=== PATIENT | female | born 1935 | race Asian ===

== ENCOUNTER → 2017-09-19 | Outpatient (CLI) | payer MEDICARE, OTHER ==
[2017-09-19 13:53] LABS: ALBUMIN 3.3 g/dL (3.4-5.0); BILIRUBIN,TOTAL 0.3 mg/dL (0.1-1.0); CALCIUM, TOTAL 9.2 mg/dL (8.8-10.5); CREATININE 2.11 mg/dL (0.60-1.30); PHOSPHORUS 3.7 mg/dL (2.5-4.9); POTASSIUM 5.9 mmol/L (3.5-5.1); TOTAL PROTEIN, SERUM 8.7 g/dL (6.4-8.2)
[2017-09-19 14:02] LABS: HEMOGLOBIN A1C 7.1 % (4.5-6.2)
== END | disposition home or self-care (01) ==
LOC: LABPV 08:33
PROVIDERS: ATTEND Internal Medicine Nephrology
DX: I12.9 Hypertensive chronic kidney disease with stage 1 through stage 4 chronic kidney disease, or unspecified chronic kidney disease (principal); E11.22 Type 2 diabetes mellitus with diabetic chronic kidney disease; N18.3 Chronic kidney disease, stage 3 (moderate); E78.5 Hyperlipidemia, unspecified
CPT/HCPCS: 82306; 83036; 83970; 84100

== ENCOUNTER → 2017-10-02 | Outpatient (CLI) | payer MEDICARE, OTHER | END | disposition home or self-care (01) | LOC: LABPV 09:07 | PROVIDERS: ATTEND Internal Medicine Nephrology | DX: E87.5 Hyperkalemia (principal); N18.3 Chronic kidney disease, stage 3 (moderate) | CPT/HCPCS: 84132 ==

== ENCOUNTER → 2017-10-05 | Outpatient (CLI) | payer MEDICARE, OTHER | END | disposition home or self-care (01) | LOC: LABPV 10:50 | PROVIDERS: ATTEND Internal Medicine Nephrology | DX: E87.5 Hyperkalemia (principal) | CPT/HCPCS: 84132 ==

== ENCOUNTER → 2017-12-21 | Outpatient (CLI) | payer MEDICARE, OTHER ==
[2017-12-21 10:16] LABS: HEMATOCRIT 30.7 % (36-46); HEMOGLOBIN 9.9 g/dL (12.0-16.0)
[2017-12-21 10:27] LABS: CALCIUM, TOTAL 9.3 mg/dL (8.8-10.5); CREATININE 2.01 mg/dL (0.60-1.30); POTASSIUM 3.8 mmol/L (3.5-5.1)
[2017-12-21 10:55] LABS: CREATININE,URINE RANDOM 194.2 mg/dL (30.0-125.0)
== END | disposition home or self-care (01) ==
LOC: LABPV 09:07
PROVIDERS: ATTEND Internal Medicine Nephrology
DX: I12.9 Hypertensive chronic kidney disease with stage 1 through stage 4 chronic kidney disease, or unspecified chronic kidney disease (principal); N18.3 Chronic kidney disease, stage 3 (moderate); N39.0 Urinary tract infection, site not specified; E78.5 Hyperlipidemia, unspecified; M19.90 Unspecified osteoarthritis, unspecified site; E87.5 Hyperkalemia
CPT/HCPCS: 82570; 84156; 85014; 85018

== ENCOUNTER → 2018-02-21 | Outpatient (CLI) | payer MEDICARE, OTHER ==
[2018-02-21 12:30] LABS: CALCIUM, TOTAL 9.6 mg/dL (8.8-10.5); CREATININE 2.25 mg/dL (0.60-1.30)
[2018-02-21 12:35] LABS: HEMATOCRIT 31.8 % (36-46); HEMOGLOBIN 10.5 g/dL (12.0-16.0)
== END | disposition home or self-care (01) ==
LOC: LABPV 09:07
PROVIDERS: ATTEND Internal Medicine Nephrology
DX: E11.22 Type 2 diabetes mellitus with diabetic chronic kidney disease (principal); N18.3 Chronic kidney disease, stage 3 (moderate); E78.5 Hyperlipidemia, unspecified
CPT/HCPCS: 85014; 85018

== ENCOUNTER → 2018-04-18 | Outpatient (CLI) | payer MEDICARE, OTHER ==
[2018-04-18 12:43] LABS: HEMATOCRIT 29.8 % (36-46)
[2018-04-18 12:54] LABS: ALBUMIN 2.7 g/dL (3.4-5.0); BILIRUBIN,TOTAL 0.6 mg/dL (0.1-1.0); CALCIUM, TOTAL 8.5 mg/dL (8.8-10.5); CREATININE 2.15 mg/dL (0.60-1.30); POTASSIUM 4.7 mmol/L (3.5-5.1); TOTAL PROTEIN, SERUM 7.9 g/dL (6.4-8.2)
[2018-04-18 13:01] LABS: HEMOGLOBIN A1C 7.8 % (4.5-6.2)
[2018-04-18 15:55] LABS: CREATININE,URINE 46.3 mg/dL (30.0-125.0)
[2018-04-18 15:58] LABS: CREATININE,SERUM FOR CRCL 2.15 mg/dL (0.60-1.30)
== END | disposition home or self-care (01) ==
LOC: LABPV 08:36
PROVIDERS: ATTEND Internal Medicine Nephrology
DX: E11.22 Type 2 diabetes mellitus with diabetic chronic kidney disease (principal); N18.3 Chronic kidney disease, stage 3 (moderate); M19.90 Unspecified osteoarthritis, unspecified site
CPT/HCPCS: 81050; 82575; 83036; 84156; 84300; 85014; 85018

== ENCOUNTER → 2018-07-18 | Outpatient (CLI) | payer MEDICARE, OTHER ==
[2018-07-18 14:13] LABS: HEMATOCRIT 28.9 % (36-46); HEMOGLOBIN 9.5 g/dL (12.0-16.0)
[2018-07-18 14:19] LABS: APPEARANCE,URINE CLOUDY (CLEAR); BILIRUBIN,URINE NEGATIVE (NEGATIVE); GLUCOSE, URINE (UA) 100 mg/dL (NEGATIVE); KETONES,URINE NEGATIVE (NEGATIVE); LEUKOCYTE ESTERASE ,URINE TRACE (NEGATIVE); NITRATE,URINE NEGATIVE (NEGATIVE); OCCULT BLOOD,URINE MODERATE (NEGATIVE); PROTEIN,URINE SEE CONFIRM (NEGATIVE); UROBILINOGEN,URINE 0.2 mg/dL (<=1.0)
[2018-07-18 14:23] LABS: ALBUMIN 2.4 g/dL (3.4-5.0); BILIRUBIN,TOTAL 0.2 mg/dL (0.1-1.0); CALCIUM, TOTAL 9.2 mg/dL (8.8-10.5); CHOL/HDL RATIO 3.7 (3.9-5.7); CREATININE 2.89 mg/dL (0.60-1.30); POTASSIUM 4.3 mmol/L (3.5-5.1); TOTAL PROTEIN, SERUM 8.3 g/dL (6.4-8.2)
[2018-07-18 14:33] LABS: SULFOSALICYLIC ACID,URINE 4+ (Negative)
[2018-07-18 14:35] LABS: BACTERIA,URINE Many /HPF (None Seen); RBC,URINE 0-2 /HPF (0-2); SQUAMOUS EPITHELIAL CELL,UR Few /LPF (None Seen)
== END | disposition home or self-care (01) ==
LOC: LABPV 09:23
PROVIDERS: ATTEND Internal Medicine Nephrology
DX: I12.9 Hypertensive chronic kidney disease with stage 1 through stage 4 chronic kidney disease, or unspecified chronic kidney disease (principal); E11.22 Type 2 diabetes mellitus with diabetic chronic kidney disease; N18.3 Chronic kidney disease, stage 3 (moderate); E55.9 Vitamin D deficiency, unspecified; E78.5 Hyperlipidemia, unspecified; E87.5 Hyperkalemia; Z79.899 Other long term (current) drug therapy
CPT/HCPCS: 82306; 85014; 85018; 87086

== ENCOUNTER → 2018-08-01 | Outpatient (CLI) | payer MEDICARE, OTHER ==
[2018-08-01 13:06] LABS: CALCIUM, TOTAL 9.2 mg/dL (8.8-10.5); CREATININE 2.17 mg/dL (0.60-1.30); POTASSIUM 4.3 mmol/L (3.5-5.1)
== END | disposition home or self-care (01) ==
LOC: LABPV 09:48
PROVIDERS: ATTEND Internal Medicine Nephrology
DX: I12.9 Hypertensive chronic kidney disease with stage 1 through stage 4 chronic kidney disease, or unspecified chronic kidney disease (principal); E11.22 Type 2 diabetes mellitus with diabetic chronic kidney disease; N18.3 Chronic kidney disease, stage 3 (moderate); E78.5 Hyperlipidemia, unspecified

== ENCOUNTER → 2018-09-18 | Outpatient (CLI) | payer MEDICARE, OTHER ==
[2018-09-18 09:57] LABS: HEMATOCRIT 30.8 % (36-46); HEMOGLOBIN 10.3 g/dL (12.0-16.0)
[2018-09-18 10:18] LABS: CALCIUM, TOTAL 9.1 mg/dL (8.8-10.5); CREATININE 2.69 mg/dL (0.60-1.30); POTASSIUM 4.6 mmol/L (3.5-5.1)
[2018-09-18 10:20] LABS: CREATININE,URINE 53.3 mg/dL (30.0-125.0)
[2018-09-18 10:23] LABS: CREATININE,SERUM FOR CRCL 2.69 mg/dL (0.60-1.30)
[2018-09-18 16:46] LABS: % IRON SATURATION 27.5 % (22-44)
== END | disposition home or self-care (01) ==
LOC: LABPV 08:24
PROVIDERS: ATTEND Internal Medicine Nephrology
DX: E78.5 Hyperlipidemia, unspecified (principal); E11.22 Type 2 diabetes mellitus with diabetic chronic kidney disease; N18.3 Chronic kidney disease, stage 3 (moderate); M19.90 Unspecified osteoarthritis, unspecified site
CPT/HCPCS: 81050; 82575; 82607; 82728; 82746; 82784; 83540; 83550; 84155; 84156; 84165; 84166; 84300; 84466; 85014; 85018; 86334; 86335

== ENCOUNTER → 2018-11-28 | Outpatient (CLI) | payer MEDICARE, OTHER ==
[2018-11-28 11:52] LABS: HEMATOCRIT 29.2 % (36-46); HEMOGLOBIN 9.7 g/dL (12.0-16.0)
[2018-11-28 12:04] LABS: CALCIUM, TOTAL 9.1 mg/dL (8.8-10.5); CREATININE 3.19 mg/dL (0.60-1.30); PHOSPHORUS 4.3 mg/dL (2.5-4.9); POTASSIUM 5.3 mmol/L (3.5-5.1)
== END | disposition home or self-care (01) ==
LOC: LABPV 10:02
PROVIDERS: ATTEND Internal Medicine Nephrology
DX: I12.9 Hypertensive chronic kidney disease with stage 1 through stage 4 chronic kidney disease, or unspecified chronic kidney disease (principal); E11.22 Type 2 diabetes mellitus with diabetic chronic kidney disease; N18.4 Chronic kidney disease, stage 4 (severe); N25.81 Secondary hyperparathyroidism of renal origin; D63.1 Anemia in chronic kidney disease
CPT/HCPCS: 83970; 84100; 85014; 85018

== ENCOUNTER → 2018-12-07 | Outpatient (CLI) | payer MEDICARE, OTHER ==
[2018-12-07 10:33] LABS: HEMOGLOBIN A1C 7.9 % (4.5-6.2)
[2018-12-07 10:40] LABS: ALBUMIN 3.1 g/dL (3.4-5.0); BILIRUBIN,TOTAL 0.6 mg/dL (0.1-1.0); CALCIUM, TOTAL 9.3 mg/dL (8.8-10.5); CREATININE 2.76 mg/dL (0.60-1.30); POTASSIUM 4.5 mmol/L (3.5-5.1); TOTAL PROTEIN, SERUM 8.3 g/dL (6.4-8.2)
== END | disposition home or self-care (01) ==
LOC: LABPV 09:23
PROVIDERS: ATTEND Internal Medicine Nephrology
DX: I12.9 Hypertensive chronic kidney disease with stage 1 through stage 4 chronic kidney disease, or unspecified chronic kidney disease (principal); E11.22 Type 2 diabetes mellitus with diabetic chronic kidney disease; N18.4 Chronic kidney disease, stage 4 (severe); Z79.899 Other long term (current) drug therapy
CPT/HCPCS: 83036

== ENCOUNTER → 2019-06-11 | Outpatient (CLI) | payer MEDICARE, OTHER ==
[2019-06-11 10:45] LABS: HEMATOCRIT 25.5 % (36-46)
[2019-06-11 10:57] LABS: ALBUMIN 2.8 g/dL (3.4-5.0); BILIRUBIN,TOTAL 0.3 mg/dL (0.1-1.0); CHOL/HDL RATIO 1.8 (3.9-5.7); CREATININE 2.17 mg/dL (0.60-1.30); PHOSPHORUS 4.4 mg/dL (2.5-4.9); POTASSIUM 5.8 mmol/L (3.5-5.1); TOTAL PROTEIN, SERUM 7.4 g/dL (6.4-8.2)
== END | disposition home or self-care (01) ==
LOC: LABPV 07:38
PROVIDERS: ATTEND Internal Medicine Nephrology
DX: I12.9 Hypertensive chronic kidney disease with stage 1 through stage 4 chronic kidney disease, or unspecified chronic kidney disease (principal); E11.22 Type 2 diabetes mellitus with diabetic chronic kidney disease; N18.9 Chronic kidney disease, unspecified; E78.49 Other hyperlipidemia; N25.81 Secondary hyperparathyroidism of renal origin; D63.1 Anemia in chronic kidney disease
CPT/HCPCS: 83970; 84100; 85014; 85018

== ENCOUNTER → 2019-06-26 | Outpatient (CLI) | payer MEDICARE, OTHER | END | disposition home or self-care (01) | LOC: LABPV 09:13 | PROVIDERS: ATTEND Internal Medicine Nephrology | DX: E87.5 Hyperkalemia (principal) | CPT/HCPCS: 84132 ==

== ENCOUNTER → 2019-09-09 | Outpatient (CLI) | payer MEDICARE, OTHER ==
[2019-09-09 11:08] LABS: HEMATOCRIT 31.6 % (36-46); HEMOGLOBIN 10.1 g/dL (12.0-16.0)
[2019-09-09 11:12] LABS: APPEARANCE,URINE CLOUDY (CLEAR); BILIRUBIN,URINE NEGATIVE (NEGATIVE); GLUCOSE, URINE (UA) 100 mg/dL (NEGATIVE); KETONES,URINE NEGATIVE (NEGATIVE); LEUKOCYTE ESTERASE ,URINE NEGATIVE (NEGATIVE); NITRATE,URINE POSITIVE (NEGATIVE); OCCULT BLOOD,URINE SMALL (NEGATIVE); PH,URINE 5.5 (5.0-8.0); PROTEIN,URINE SEE CONFIRM (NEGATIVE); UROBILINOGEN,URINE 0.2 mg/dL (<=1.0)
[2019-09-09 11:20] LABS: SULFOSALICYLIC ACID,URINE 4+ (Negative)
[2019-09-09 11:21] LABS: BACTERIA,URINE Moderate /HPF (None Seen); RBC,URINE 0-2 /HPF (0-2); SQUAMOUS EPITHELIAL CELL,UR Few /LPF (None Seen); YEAST,URINE Moderate /HPF (None Seen)
[2019-09-09 11:22] LABS: HEMOGLOBIN A1C 5.3 % (4.5-6.2)
[2019-09-09 11:34] LABS: CALCIUM, TOTAL 8.9 mg/dL (8.8-10.5); CREATININE 2.33 mg/dL (0.60-1.30); POTASSIUM 4.4 mmol/L (3.5-5.1)
[2019-09-09 17:37] LABS: CREATININE,URINE 56.9 mg/dL (30.0-125.0)
[2019-09-09 17:38] LABS: CREATININE,SERUM FOR CRCL 2.33 mg/dL (0.60-1.30)
== END | disposition home or self-care (01) ==
LOC: LABPV 08:28
PROVIDERS: ATTEND Internal Medicine Nephrology
DX: E11.22 Type 2 diabetes mellitus with diabetic chronic kidney disease (principal); E55.9 Vitamin D deficiency, unspecified; D63.1 Anemia in chronic kidney disease
CPT/HCPCS: 81050; 82306; 82575; 83036; 84156; 84166; 84300; 85014; 85018; 87086

== ENCOUNTER → 2019-10-17 | Outpatient (CLI) | payer MEDICARE, OTHER ==
[2019-10-17 12:26] LABS: HEMATOCRIT 30.3 % (36-46)
[2019-10-17 12:45] LABS: CALCIUM, TOTAL 8.4 mg/dL (8.8-10.5); CREATININE 3.08 mg/dL (0.60-1.30); POTASSIUM 5.6 mmol/L (3.5-5.1)
[2019-10-17 12:51] LABS: CREATININE,URINE RANDOM 77.3 mg/dL (30.0-125.0)
== END | disposition home or self-care (01) ==
LOC: LABPV 09:55
PROVIDERS: ATTEND Internal Medicine Nephrology
DX: E11.22 Type 2 diabetes mellitus with diabetic chronic kidney disease (principal); I12.9 Hypertensive chronic kidney disease with stage 1 through stage 4 chronic kidney disease, or unspecified chronic kidney disease; N18.9 Chronic kidney disease, unspecified; D63.1 Anemia in chronic kidney disease
CPT/HCPCS: 82570; 84156; 85014; 85018

== ENCOUNTER → 2019-11-28 | Outpatient (CLI) | payer MEDICARE, OTHER ==
[~2019-11-28] MED LIST: ALLO300 PO; AMLO5TAB9 PO; CLON0.1T83 PO; FURO40 PO; METO25 PO; METR500 PO; OMEP20 PO; SITA50 PO; SODI650T PO; SPIR25 PO
[2019-11-28 13:04] LABS: HEMATOCRIT 27.7 % (36-46); HEMOGLOBIN 9.1 g/dL (12.0-16.0)
[2019-11-28 13:18] LABS: CALCIUM, TOTAL 8.9 mg/dL (8.8-10.5); CREATININE 3.94 mg/dL (0.60-1.30); PHOSPHORUS 4.1 mg/dL (2.5-4.9); POTASSIUM 5.2 mmol/L (3.5-5.1)
== END | disposition home or self-care (01) ==
LOC: LABPV 12:19
PROVIDERS: ATTEND Internal Medicine Nephrology
DX: N18.5 Chronic kidney disease, stage 5 (principal); D63.1 Anemia in chronic kidney disease
CPT/HCPCS: 84100; 85014; 85018

== ENCOUNTER → 2019-12-27 | Outpatient (CLI) | payer MEDICARE, OTHER ==
[2019-12-27 12:37] LABS: HEMATOCRIT 25.3 % (36-46); HEMOGLOBIN 8.4 g/dL (12.0-16.0)
[2019-12-27 12:56] LABS: CALCIUM, TOTAL 8.5 mg/dL (8.8-10.5); CHOL/HDL RATIO 2.1 (3.9-5.7); CREATININE 5.41 mg/dL (0.60-1.30); POTASSIUM 3.2 mmol/L (3.5-5.1)
[2019-12-27 12:58] LABS: FOLATE SERUM 7.9 ng/mL (5.4-)
== END | disposition home or self-care (01) ==
LOC: LABPV 10:12
PROVIDERS: ATTEND Internal Medicine Nephrology
DX: E11.22 Type 2 diabetes mellitus with diabetic chronic kidney disease (principal); N18.9 Chronic kidney disease, unspecified; E55.9 Vitamin D deficiency, unspecified; D63.1 Anemia in chronic kidney disease
CPT/HCPCS: 82306; 82607; 82746; 83540; 83550; 85014; 85018

== ENCOUNTER 2020-01-12 17:34 | Inpatient (IN) | payer MEDICARE, OTHER ==
[~2020-01-12] VITALS: Ht 165.1 cm; Wt 56.7 kg
[2020-01-12] MEDS ORDERED: SPIR25 PO (17:45)
[2020-01-12] MEDS ORDERED: FURO40 PO (17:45)
[2020-01-12] MEDS ORDERED: METO25 PO (17:45)
[2020-01-12] MEDS ORDERED: OMEP20 PO (17:45)
[2020-01-12] MEDS ORDERED: SITA50 PO (17:45)
[2020-01-12] MEDS ORDERED: ALLO300 PO (17:45)
[2020-01-12] MEDS ORDERED: AMLO5TAB9 PO (17:45)
[2020-01-12] MEDS ORDERED: SODI650T PO (17:45)
[2020-01-12] MEDS ORDERED: CLON0.1T83 PO (17:45)
[2020-01-12 18:27] LABS: BASOPHILS % (AUTO) 1.8 % (0.0-2.0); EOSINOPHILS % (AUTO) 1.2 % (1.0-6.0); HEMATOCRIT 28.8 % (36-46); HEMOGLOBIN 9.2 g/dL (12.0-16.0); LYMPHOCYTES # (AUTO) 0.8 K/uL (1.0-4.8); LYMPHOCYTES % (AUTO) 14.8 % (22.0-44.0); MEAN CORPUSCULAR HEMOGLOBIN 30.2 pg (26.0-34.0); MEAN CORPUSCULAR HGB CONC 31.9 G/dL (31.0-37.0); MEAN CORPUSCULAR VOLUME 95 fL (80-100); MONOCYTES # (AUTO) 0.3 K/uL (0.1-1.0); MONOCYTES % (AUTO) 5.7 % (2.0-9.0); NEUTROPHILS # (AUTO) 3.9 K/uL (1.8-7.7); NEUTROPHILS % (AUTO) 76.5 % (40.0-70.0); PLATELET COUNT (AUTO) 139 K/uL (150-450); RED BLOOD CELL COUNT(AUTO) 3.04 MIL/uL (4.00-5.20); RED CELL DISTRIBUTION WIDTH 15.3 % (11.5-14.5)
[2020-01-12 18:42] LABS: CREATININE 4.74 mg/dL (0.60-1.30)
[2020-01-12 18:48] LABS: ALBUMIN 3.3 g/dL (3.4-5.0); BILIRUBIN,TOTAL 1.4 mg/dL (0.1-1.0)
[2020-01-12 20:58] LABS: APPEARANCE,URINE CLOUDY (CLEAR); GLUCOSE, URINE (UA) 100 mg/dL (NEGATIVE); KETONES,URINE TRACE mg/dL (NEGATIVE); LEUKOCYTE ESTERASE ,URINE NEGATIVE (NEGATIVE); NITRATE,URINE NEGATIVE (NEGATIVE); OCCULT BLOOD,URINE MODERATE (NEGATIVE); PROTEIN,URINE SEE CONFIRM (NEGATIVE)
[2020-01-12 21:18] LABS: BILIRUBIN,URINE PRELIM. POSITIVE (NEGATIVE)
[2020-01-12 21:27] LABS: SULFOSALICYLIC ACID,URINE 4+ (Negative)
[2020-01-12 21:29] LABS: BACTERIA,URINE Few /HPF (None Seen); RBC,URINE 0-2 /HPF (0-2); WBC,URINE 0-2 /HPF (0-5)
[2020-01-12 21:30] LABS: SQUAMOUS EPITHELIAL CELL,UR Moderate /LPF (None Seen); YEAST,URINE Many /HPF (None Seen)
[2020-01-12] MEDS ORDERED: 0.9% SODIUM CHLORIDE 10 ML SYRINGE IVP PRN (23:30)
[2020-01-12] MEDS ORDERED: ACETAMINOPHEN 325 MG TABLET PO PRN ×2 (23:30→23:45)
[2020-01-12] MEDS ORDERED: FAMOTIDINE 10 MG/ML 2 ML VIAL IVP ONE (23:30)
[2020-01-12] MEDS ORDERED: ONDANSETRON HCL 4 MG/2 ML VIAL IVP PRN ×2 (23:30→23:45)
[2020-01-12] MEDS ORDERED: BISACODYL 10 MG RECTAL RECTAL SUPPOSITORY PR PRN (23:45)
[2020-01-12] MEDS ORDERED: MAGNESIUM HYDROXIDE SUSPENSION 30 ML UDCUP PO PRN (23:45)
[2020-01-12] MEDS ORDERED: ZOLPIDEM TARTRATE 5 MG TABLET PO PRN (23:45)
[2020-01-12] MEDS ORDERED: MORPHINE SULFATE 2 MG/ML SYRINGE IVP PRN (23:45)
[2020-01-12] MEDS ORDERED: HYDROCODONE/ACETAMINOPHEN 5-325 MG TABLET PO PRN (23:45)
[2020-01-13] VITALS (7 sets, daily range): BP systolic 110–155; BP diastolic 54–74
[2020-01-13 00:07] LABS: INR 1.1 (0.9-1.1); PROTHROMBIN TIME 11.4 SEC (9.4-11.6)
[2020-01-13] MEDS ORDERED: SODIUM CHLORIDE 0.9% 500 ML IV ONE (00:49)
[2020-01-13] MEDS: MetroNIDAZOLE 500 MG/NACL 100 ML IV SCH ×3 (01:09→15:16)
[2020-01-13] MEDS: HEPARIN SODIUM,PORCINE 5,000 UNITS/ML VIAL SQ SCH ×3 (01:15→15:17)
[2020-01-13] MEDS: CIPROFLOXACIN 400 MG/D5% WATER 200 ML IV SCH ×2 (02:22→13:51)
[2020-01-13] MEDS ORDERED: PANTOPRAZOLE SODIUM 40 MG DR TABLET PO SCH (09:00)
[2020-01-13] MEDS: SODIUM BICARBONATE 650 MG TABLET PO SCH (11:33)
[2020-01-13] MEDS: METOPROLOL TARTRATE 25 MG TABLET PO SCH ×2 (11:35→20:08)
[2020-01-13] MEDS: SPIRONOLACTONE 25 MG TABLET PO SCH (11:35)
[2020-01-13] MEDS: OMEPRAZOLE 20 MG CAPSULE PO SCH (11:35)
[2020-01-13] MEDS: ALLOPURINOL 100 MG TABLET PO SCH ×2 (11:35→21:43)
[2020-01-13] MEDS: AmLODIPine BESYLATE 5 MG TABLET PO SCH ×2 (11:35→20:08)
[2020-01-13] MEDS: SitaGLIPtin PHOSPHATE 50 MG TABLET PO SCH (11:43)
[2020-01-13] MEDS: CloNIDine HCL 0.1 MG TABLET PO SCH ×2 (11:43→20:08)
[2020-01-13 12:18] LABS: SPECIMENTYPE,BODY FLUID ASCITES
[2020-01-13 12:20] LABS: APPEARANCE,SPUN,BODY FLUID CLEAR (CLEAR); APPEARANCE,UNSPUN,BODY FLUID HAZY (CLEAR); COLOR,BODY FLUID YELLOW (LT YELLOW)
[2020-01-13 12:21] LABS: BASOPHILS,BODY FLUID 0 %; EOSINOPHILS,BF (ANAL) 0 %; LYMPHOCYTES,BODY FLUID 43 %; MONOCYTES,BODY FLUID 21 %; NEUTROPHILS,BODY FLUID 36 %; TOTAL VOLUME,BODY FLUID 3850 mL; WBC, BODY FLUID 87 /cu. mm.
[2020-01-13 17:43] LABS: GLUCOMETER DEV NAME(LOC) 6S.1; GLUCOSE,POINT OF CARE 114 MG/DL (70-110)
[2020-01-13 17:43] LABS: GLUCOMETER DEV NAME(LOC) 6S.1; GLUCOSE,POINT OF CARE 80 MG/DL (70-110)
[2020-01-14] MEDS: MetroNIDAZOLE 500 MG/NACL 100 ML IV SCH ×2 (00:27→08:47)
[2020-01-14] MEDS: HEPARIN SODIUM,PORCINE 5,000 UNITS/ML VIAL SQ SCH ×2 (00:30→08:47)
[2020-01-14] MEDS: CIPROFLOXACIN 400 MG/D5% WATER 200 ML IV SCH (01:41)
[2020-01-14] MEDS ORDERED: SODIUM CHLORIDE 0.9% 250 ML IV ONE (03:13)
[2020-01-14 05:28] VITALS: BP 120/57
[2020-01-14 07:18] VITALS: BP 124/66
[2020-01-14 07:33] LABS: HEMOGLOBIN A1C 5.3 % (3.8-5.6)
[2020-01-14 07:34] LABS: GLUCOMETER DEV NAME(LOC) 6S.1; GLUCOSE,POINT OF CARE 74 MG/DL (70-110)
[2020-01-14 07:48] LABS: CALCIUM, TOTAL 8.8 mg/dL (8.8-10.5); CREATININE 4.1 mg/dL (0.60-1.30); PHOSPHORUS 5.1 mg/dL (2.5-4.9); POTASSIUM 3.9 mmol/L (3.5-5.1)
[2020-01-14] MEDS: SitaGLIPtin PHOSPHATE 50 MG TABLET PO SCH (08:45)
[2020-01-14] MEDS: OMEPRAZOLE 20 MG CAPSULE PO SCH (08:45)
[2020-01-14] MEDS: CloNIDine HCL 0.1 MG TABLET PO SCH (08:46)
[2020-01-14] MEDS: ALLOPURINOL 100 MG TABLET PO SCH (08:46)
[2020-01-14] MEDS: METOPROLOL TARTRATE 25 MG TABLET PO SCH (08:46)
[2020-01-14] MEDS: SPIRONOLACTONE 25 MG TABLET PO SCH (08:46)
[2020-01-14] MEDS: SODIUM BICARBONATE 650 MG TABLET PO SCH (08:51)
[2020-01-14] MEDS ORDERED: FUROSEMIDE 40 MG TABLET PO SCH (09:00)
[2020-01-14] MEDS: AmLODIPine BESYLATE 5 MG TABLET PO SCH (09:20)
[2020-01-14 11:26] VITALS: BP 109/51
[2020-01-14] MEDS ORDERED: METR500 PO (11:36)
[2020-01-14 16:43] LABS: GLUCOMETER DEV NAME(LOC) 6S.1; GLUCOSE,POINT OF CARE 120 MG/DL (70-110)
== END 2020-01-14 13:10 | disposition home or self-care (01) | DRG 392 ==
LOC: EMS 17:36 → 6N 23:49
PROVIDERS: ADMIT Internal Medicine; ATTEND Internal Medicine
PROC: 0W9G3ZZ Drainage of Peritoneal Cavity, Percutaneous Approach (ICD-10-PCS; principal; 2020-01-13)
DX: K52.9 Noninfective gastroenteritis and colitis, unspecified (principal); R18.8 Other ascites; N17.9 Acute kidney failure, unspecified; E44.0 Moderate protein-calorie malnutrition; N18.3 Chronic kidney disease, stage 3 (moderate); E78.5 Hyperlipidemia, unspecified; I12.9 Hypertensive chronic kidney disease with stage 1 through stage 4 chronic kidney disease, or unspecified chronic kidney disease; E11.22 Type 2 diabetes mellitus with diabetic chronic kidney disease; K21.9 Gastro-esophageal reflux disease without esophagitis; E11.40 Type 2 diabetes mellitus with diabetic neuropathy, unspecified; M10.9 Gout, unspecified; D64.9 Anemia, unspecified; J45.909 Unspecified asthma, uncomplicated; Z68.20 Body mass index [BMI] 20.0-20.9, adult
CPT/HCPCS: 49083; 74176; 76942; 83036; 83605; 83735; 84100; 89051; 93005; 97161; 97166; 97535; J0744; J1644; J3490; J7040; J7050

== ENCOUNTER → 2020-05-06 | Outpatient (CLI) | payer MEDICARE, OTHER ==
[2020-05-06 10:41] LABS: HEMATOCRIT 28.5 % (36-46); HEMOGLOBIN 9.3 g/dL (12.0-16.0)
[2020-05-06 10:59] LABS: CALCIUM, TOTAL 8.1 mg/dL (8.8-10.5); CREATININE 4.38 mg/dL (0.60-1.30); POTASSIUM 5.5 mmol/L (3.5-5.1)
== END | disposition home or self-care (01) ==
LOC: LABPV 09:54
PROVIDERS: ATTEND Internal Medicine Nephrology
DX: N18.3 Chronic kidney disease, stage 3 (moderate) (principal); D63.1 Anemia in chronic kidney disease
CPT/HCPCS: 85014; 85018

== ENCOUNTER → 2020-06-04 | Outpatient (CLI) | payer MEDICARE, OTHER ==
[~2020-06-04] MED LIST changes: +ALLO-45 PO; -ALLO300 PO; +AMLO-257 PO; -AMLO5TAB9 PO
[2020-06-04 10:09] LABS: HEMATOCRIT 32.6 % (36-46); HEMOGLOBIN 10.6 g/dL (12.0-16.0)
[2020-06-04 10:25] LABS: ALBUMIN 3.1 g/dL (3.4-5.0); BILIRUBIN,TOTAL 0.4 mg/dL (0.1-1.0); CALCIUM, TOTAL 8.8 mg/dL (8.8-10.5); CREATININE 5.36 mg/dL (0.60-1.30); PHOSPHORUS 6.5 mg/dL (2.5-4.9); TOTAL PROTEIN, SERUM 8.6 g/dL (6.4-8.2)
== END | disposition home or self-care (01) ==
LOC: LABPV 08:43
PROVIDERS: ATTEND Internal Medicine Nephrology
DX: E55.9 Vitamin D deficiency, unspecified (principal); D63.1 Anemia in chronic kidney disease; N18.5 Chronic kidney disease, stage 5; E11.22 Type 2 diabetes mellitus with diabetic chronic kidney disease
CPT/HCPCS: 82306; 84100; 85014; 85018

== ENCOUNTER → 2020-08-27 | Outpatient (CLI) | payer MEDICARE, OTHER ==
[2020-08-27 12:32] LABS: HEMATOCRIT 23.1 % (36-46); HEMOGLOBIN 7.7 g/dL (12.0-16.0)
[2020-08-27 12:43] LABS: CALCIUM, TOTAL 8.9 mg/dL (8.8-10.5); CREATININE 4.38 mg/dL (0.60-1.30); POTASSIUM 5.7 mmol/L (3.5-5.1)
[2020-08-27 12:51] LABS: HEMOGLOBIN A1C 4.3 % (3.8-5.6)
== END | disposition home or self-care (01) ==
LOC: LABPV 09:22
PROVIDERS: ATTEND Internal Medicine Nephrology
DX: E11.22 Type 2 diabetes mellitus with diabetic chronic kidney disease (principal); N18.5 Chronic kidney disease, stage 5; D63.1 Anemia in chronic kidney disease; E55.9 Vitamin D deficiency, unspecified
CPT/HCPCS: 82306; 83036; 85014; 85018

== ENCOUNTER → 2020-10-09 | Outpatient (CLI) | payer MEDICARE, OTHER ==
[~2020-10-09] MED LIST changes: -SODI650T PO; +SODI650T33 PO
[2020-10-09 10:25] LABS: HEMATOCRIT 30.6 % (36-46); HEMOGLOBIN 9.8 g/dL (12.0-16.0)
[2020-10-09 10:44] LABS: CALCIUM, TOTAL 8.8 mg/dL (8.8-10.5); CREATININE 5.69 mg/dL (0.60-1.30); PHOSPHORUS 4.4 mg/dL (2.5-4.9)
== END | disposition home or self-care (01) ==
LOC: LABPV 07:10
PROVIDERS: ATTEND Internal Medicine Nephrology
DX: N18.5 Chronic kidney disease, stage 5 (principal); D63.1 Anemia in chronic kidney disease
CPT/HCPCS: 83970; 84100; 85014; 85018

== ENCOUNTER 2020-11-14 02:55 | Emergency (ER) | payer MEDICARE, OTHER ==
[~2020-11-14] VITALS: Ht 152.4 cm; Wt 54.5 kg
[2020-11-14 03:30] VITALS: BP 170/78
[2020-11-14] MEDS ORDERED: MAG HYDROX/AL HYDROX/SIMETH 30 ML SUSP UDCUP PO ONE (03:45)
[2020-11-14] MEDS ORDERED: ONDANSETRON HCL 4 MG TABLET PO ONE (03:45)
[2020-11-14] MEDS ORDERED: ACETAMINOPHEN 500 MG TABLET PO ONE (03:45)
[2020-11-14] MEDS ORDERED: FAMOTIDINE 20 MG TABLET PO ONE (03:45)
[2020-11-14 04:51] LABS: BASOPHILS % (AUTO) 0.3 % (0.0-2.0); EOSINOPHILS % (AUTO) 1.8 % (1.0-6.0); HEMATOCRIT 28.3 % (36-46); HEMOGLOBIN 9.1 g/dL (12.0-16.0); LYMPHOCYTES # (AUTO) 0.6 K/uL (1.0-4.8); MEAN CORPUSCULAR HGB CONC 32.1 G/dL (31.0-37.0); MEAN CORPUSCULAR VOLUME 91 fL (80-100); MONOCYTES # (AUTO) 0.2 K/uL (0.1-1.0); MONOCYTES % (AUTO) 4.4 % (2.0-9.0); NEUTROPHILS % (AUTO) 81.5 % (40.0-70.0); RED BLOOD CELL COUNT(AUTO) 3.13 MIL/uL (4.00-5.20); RED CELL DISTRIBUTION WIDTH 15.5 % (11.5-14.5)
[2020-11-14 04:55] LABS: CALCIUM, TOTAL 9.1 mg/dL (8.8-10.5); CREATININE 3.08 mg/dL (0.60-1.30)
[2020-11-14 05:00] LABS: BILIRUBIN,TOTAL 1.1 mg/dL (0.1-1.0)
[2020-11-14 05:05] LABS: PLATELET COUNT (AUTO) 95 K/uL (150-450)
== END 2020-11-14 07:15 | disposition home or self-care (01) ==
LOC: EMS 03:00
DX: K52.9 Noninfective gastroenteritis and colitis, unspecified (principal); I12.9 Hypertensive chronic kidney disease with stage 1 through stage 4 chronic kidney disease, or unspecified chronic kidney disease; E11.22 Type 2 diabetes mellitus with diabetic chronic kidney disease; N18.9 Chronic kidney disease, unspecified; Z79.899 Other long term (current) drug therapy
CPT/HCPCS: 80053; 82962; 83690; 83880; 84484; 85025; 99284; Q0162

== ENCOUNTER 2020-12-02 06:09 | Emergency (ER) | payer MEDICARE, OTHER ==
[~2020-12-02] VITALS: Ht 147.3 cm; Wt 53.6 kg
[2020-12-02 06:32] LABS: GLUCOSE,POINT OF CARE 104 MG/DL (70-110)
[2020-12-02 08:24] LABS: CALCIUM, TOTAL 8.8 mg/dL (8.8-10.5); CREATININE 3.65 mg/dL (0.60-1.30); POTASSIUM 4.1 mmol/L (3.5-5.1)
[2020-12-02 08:27] LABS: BASOPHILS % (AUTO) 0.8 % (0.0-2.0); EOSINOPHILS % (AUTO) 2.5 % (1.0-6.0); HEMATOCRIT 26.5 % (36-46); HEMOGLOBIN 8.8 g/dL (12.0-16.0); LYMPHOCYTES # (AUTO) 0.9 K/uL (1.0-4.8); LYMPHOCYTES % (AUTO) 17.7 % (22.0-44.0); MEAN CORPUSCULAR HEMOGLOBIN 30.3 pg (26.0-34.0); MEAN CORPUSCULAR HGB CONC 33.1 G/dL (31.0-37.0); MEAN CORPUSCULAR VOLUME 91 fL (80-100); MONOCYTES # (AUTO) 0.3 K/uL (0.1-1.0); MONOCYTES % (AUTO) 5.9 % (2.0-9.0); NEUTROPHILS # (AUTO) 3.6 K/uL (1.8-7.7); NEUTROPHILS % (AUTO) 73.1 % (40.0-70.0); PLATELET COUNT (AUTO) 114 K/uL (150-450)
[2020-12-02 08:30] VITALS: BP 150/76
[2020-12-02 08:31] LABS: ALBUMIN 3.3 g/dL (3.4-5.0); BILIRUBIN,TOTAL 0.9 mg/dL (0.1-1.0); TOTAL PROTEIN, SERUM 8.6 g/dL (6.4-8.2)
[2020-12-04] MEDS ORDERED: ATOR10TA84 PO (07:57)
[2020-12-04] MEDS ORDERED: PHOSLOC PO (07:57)
== END 2020-12-02 09:13 | disposition home or self-care (01) ==
LOC: EMS 06:10
DX: N18.9 Chronic kidney disease, unspecified (principal); D69.6 Thrombocytopenia, unspecified; D64.9 Anemia, unspecified; R18.8 Other ascites; E11.9 Type 2 diabetes mellitus without complications; I10 Essential (primary) hypertension
CPT/HCPCS: 74176; 99284

== ENCOUNTER 2021-01-31 09:13 | Emergency (ER) | payer MEDICARE, OTHER ==
[~2021-01-31] VITALS: Ht 149.9 cm; Wt 59.1 kg
[~2021-01-31 09:13] MED LIST changes: +ATOR10TA84 PO; +CLON0.1T2 PO; -CLON0.1T83 PO; -FURO40 PO; +PHOSLOC PO; -SITA50 PO; -SPIR25 PO
[2021-01-31 10:05] LABS: BASOPHILS % (AUTO) 0.7 % (0.0-2.0); EOSINOPHILS % (AUTO) 1.2 % (1.0-6.0); HEMATOCRIT 31.8 % (36-46); HEMOGLOBIN 10.7 g/dL (12.0-16.0); LYMPHOCYTES # (AUTO) 0.7 K/uL (1.0-4.8); LYMPHOCYTES % (AUTO) 17.8 % (22.0-44.0); MEAN CORPUSCULAR HEMOGLOBIN 30.8 pg (26.0-34.0); MEAN CORPUSCULAR HGB CONC 33.5 G/dL (31.0-37.0); MEAN CORPUSCULAR VOLUME 92 fL (80-100); MONOCYTES # (AUTO) 0.4 K/uL (0.1-1.0); MONOCYTES % (AUTO) 10.3 % (2.0-9.0); NEUTROPHILS # (AUTO) 2.6 K/uL (1.8-7.7); PLATELET COUNT (AUTO) 193 K/uL (150-450); RED BLOOD CELL COUNT(AUTO) 3.46 MIL/uL (4.00-5.20); RED CELL DISTRIBUTION WIDTH 14.4 % (11.5-14.5)
[2021-01-31 10:10] LABS: CALCIUM, TOTAL 8.7 mg/dL (8.8-10.5); CREATININE 4.83 mg/dL (0.60-1.30); POTASSIUM 3.2 mmol/L (3.5-5.1)
[2021-01-31 10:16] LABS: BILIRUBIN,TOTAL 1.3 mg/dL (0.1-1.0); TOTAL PROTEIN, SERUM 9.2 g/dL (6.4-8.2)
[2021-01-31 10:36] LABS: INR 1.1 (0.9-1.1); PROTHROMBIN TIME 11.2 SEC (9.4-11.6)
[2021-01-31 11:10] VITALS: BP 140/85
== END 2021-01-31 11:20 | disposition home or self-care (01) ==
LOC: EMS 09:13
DX: S40.022A Contusion of left upper arm, initial encounter (principal); E87.6 Hypokalemia; I12.0 Hypertensive chronic kidney disease with stage 5 chronic kidney disease or end stage renal disease; N18.6 End stage renal disease; Z99.2 Dependence on renal dialysis; X58.XXXA Exposure to other specified factors, initial encounter; Y93.89 Activity, other specified; Y92.89 Other specified places as the place of occurrence of the external cause; Y99.8 Other external cause status
CPT/HCPCS: 93005; 99285; 36415-L1; 36415-TC; 71045-TC

== ENCOUNTER 2021-06-01 06:49 | Inpatient (IN) | payer MEDICARE, OTHER ==
[~2021-06-01] VITALS: Ht 152.4 cm; Wt 48.0 kg
[2021-06-01 07:55] LABS: BASOPHILS % (AUTO) 0.6 % (0.0-2.0); EOSINOPHILS % (AUTO) 0.4 % (1.0-6.0); HEMATOCRIT 31.6 % (36-46); HEMOGLOBIN 10.6 g/dL (12.0-16.0); LYMPHOCYTES # (AUTO) 0.6 K/uL (1.0-4.8); LYMPHOCYTES % (AUTO) 11.9 % (22.0-44.0); MEAN CORPUSCULAR HEMOGLOBIN 30.9 pg (26.0-34.0); MEAN CORPUSCULAR HGB CONC 33.6 G/dL (31.0-37.0); MEAN CORPUSCULAR VOLUME 92 fL (80-100); MONOCYTES # (AUTO) 0.5 K/uL (0.1-1.0); MONOCYTES % (AUTO) 9.5 % (2.0-9.0); NEUTROPHILS # (AUTO) 3.7 K/uL (1.8-7.7); NEUTROPHILS % (AUTO) 77.6 % (40.0-70.0); PLATELET COUNT (AUTO) 116 K/uL (150-450); RED BLOOD CELL COUNT(AUTO) 3.45 MIL/uL (4.00-5.20); RED CELL DISTRIBUTION WIDTH 15.4 % (11.5-14.5)
[2021-06-01] MEDS ORDERED: ONDANSETRON HCL 4 MG/2 ML VIAL IVP ONE (08:00)
[2021-06-01] MEDS ORDERED: MORPHINE SULFATE 2 MG/ML SYRINGE IVP ONE (08:00)
[2021-06-01 08:12] LABS: CALCIUM, TOTAL 8.7 mg/dL (8.8-10.5); CREATININE 2.97 mg/dL (0.60-1.30); POTASSIUM 3.9 mmol/L (3.5-5.1)
[2021-06-01 08:17] LABS: ALBUMIN 2.9 g/dL (3.4-5.0); BILIRUBIN,TOTAL 1.7 mg/dL (0.1-1.0); TOTAL PROTEIN, SERUM 8.9 g/dL (6.4-8.2)
[2021-06-01 09:22] LABS: PROTHROMBIN TIME 11.1 SEC (9.4-11.6)
[2021-06-01 09:40] LABS: COVID AG,FIA SOURCE NASOPHARYNGEAL
[2021-06-01] MEDS ORDERED: ONDANSETRON HCL 4 MG/2 ML VIAL IVP PRN ×2 (09:45→16:00)
[2021-06-01] MEDS ORDERED: ACETAMINOPHEN 325 MG TABLET PO PRN ×2 (09:45→16:00)
[2021-06-01] MEDS ORDERED: 0.9% SODIUM CHLORIDE 10 ML SYRINGE IVP PRN (09:45)
[2021-06-01] MEDS: PIPERACILLIN SODIUM/TAZOBACTAM 2.25 GM in DEXTROSE 5%-WATER 50 ML IV SCH ×2 (10:30→20:15)
[2021-06-01] MEDS ORDERED: GADOTERATE MEGLUMINE 10 MMOL/20 ML VIAL IVP ONE (10:47)
[2021-06-01 15:23] VITALS: BP 166/63
[2021-06-01] MEDS ORDERED: MORPHINE SULFATE 2 MG/ML SYRINGE IVP PRN (16:00)
[2021-06-01] MEDS ORDERED: BISACODYL 10 MG RECTAL RECTAL SUPPOSITORY PR PRN (16:00)
[2021-06-01] MEDS ORDERED: HYDROCODONE/ACETAMINOPHEN 5-325 MG TABLET PO PRN (16:00)
[2021-06-01] MEDS: HEPARIN SODIUM,PORCINE 5,000 UNITS/ML VIAL SQ SCH ×2 (16:00→23:21)
[2021-06-01] MEDS ORDERED: MAGNESIUM HYDROXIDE SUSPENSION 30 ML UDCUP PO PRN (16:00)
[2021-06-01] MEDS ORDERED: ZOLPIDEM TARTRATE 5 MG TABLET PO PRN (16:00)
[2021-06-01] MEDS ORDERED: ALLO100T2 PO (16:10)
[2021-06-01] MEDS: CALCIUM ACETATE 667 MG CAPSULE PO SCH (17:59)
[2021-06-01 19:36] VITALS: BP 143/61
[2021-06-01] MEDS ORDERED: SODIUM CHLORIDE 0.9% 250 ML IV ONE (20:01)
[2021-06-01] MEDS: METOPROLOL TARTRATE 25 MG TABLET PO SCH (20:14)
[2021-06-01] MEDS: AmLODIPine BESYLATE 5 MG TABLET PO SCH (20:14)
[2021-06-01] MEDS: ALLOPURINOL 100 MG TABLET PO SCH (20:14)
[2021-06-01] MEDS: CloNIDine HCL 0.1 MG TABLET PO SCH (20:14)
[2021-06-01] MEDS: ATORVASTATIN CALCIUM 10 MG TABLET PO SCH (20:14)
[2021-06-01] MEDS: DOCUSATE SODIUM 100 MG CAPSULE PO SCH (20:14)
[2021-06-01 23:45] VITALS: BP 128/65
[2021-06-02] VITALS (7 sets, daily range): BP systolic 133–174; BP diastolic 60–74
[2021-06-02] MEDS: HEPARIN SODIUM,PORCINE 5,000 UNITS/ML VIAL SQ SCH ×3 (08:00→23:29)
[2021-06-02] MEDS: CALCIUM ACETATE 667 MG CAPSULE PO SCH ×3 (08:00→16:07)
[2021-06-02] MEDS: PANTOPRAZOLE SODIUM 40 MG DR TABLET PO SCH (09:00)
[2021-06-02] MEDS: SODIUM BICARBONATE 650 MG TABLET PO SCH (09:00)
[2021-06-02] MEDS: AmLODIPine BESYLATE 5 MG TABLET PO SCH ×2 (09:00→21:00)
[2021-06-02] MEDS: CloNIDine HCL 0.1 MG TABLET PO SCH ×2 (09:00→21:00)
[2021-06-02] MEDS: DOCUSATE SODIUM 100 MG CAPSULE PO SCH ×2 (09:00→21:00)
[2021-06-02] MEDS ORDERED: OMEPRAZOLE 20 MG CAPSULE PO SCH (09:00)
[2021-06-02] MEDS: ALLOPURINOL 100 MG TABLET PO SCH ×2 (09:00→21:00)
[2021-06-02] MEDS: METOPROLOL TARTRATE 25 MG TABLET PO SCH ×2 (09:00→21:00)
[2021-06-02] MEDS: VITAMIN B COMP/VIT C/FOLIC ACID CAPSULE PO SCH (16:00)
[2021-06-02] MEDS ORDERED: MEBROFENIN TC99M/MCL ISOTOPE 1 EA INJ INJ ONE (18:20)
[2021-06-02] MEDS: ATORVASTATIN CALCIUM 10 MG TABLET PO SCH (21:00)
[2021-06-02] MEDS ORDERED: HydrALAZINE HCL 20 MG/ML VIAL IVP PRN (22:00)
[2021-06-03] VITALS (7 sets, daily range): BP systolic 111–161; BP diastolic 22–71
[2021-06-03] MEDS: CloNIDine HCL 0.1 MG TABLET PO SCH ×2 (07:56→20:40)
[2021-06-03] MEDS: METOPROLOL TARTRATE 25 MG TABLET PO SCH ×2 (07:56→20:40)
[2021-06-03] MEDS: HEPARIN SODIUM,PORCINE 5,000 UNITS/ML VIAL SQ SCH ×3 (07:56→23:48)
[2021-06-03] MEDS: VITAMIN B COMP/VIT C/FOLIC ACID CAPSULE PO SCH (07:56)
[2021-06-03] MEDS: CALCIUM ACETATE 667 MG CAPSULE PO SCH ×3 (07:56→18:11)
[2021-06-03] MEDS: DOCUSATE SODIUM 100 MG CAPSULE PO SCH ×2 (07:56→20:39)
[2021-06-03] MEDS: AmLODIPine BESYLATE 5 MG TABLET PO SCH ×2 (07:56→20:40)
[2021-06-03] MEDS: SODIUM BICARBONATE 650 MG TABLET PO SCH (07:57)
[2021-06-03] MEDS: PANTOPRAZOLE SODIUM 40 MG DR TABLET PO SCH (07:57)
[2021-06-03] MEDS: ALLOPURINOL 100 MG TABLET PO SCH ×2 (07:57→20:39)
[2021-06-03 08:06] LABS: EOSINOPHILS % (AUTO) 1.9 % (1.0-6.0); HEMATOCRIT 30.7 % (36-46); HEMOGLOBIN 10.3 g/dL (12.0-16.0); LYMPHOCYTES # (AUTO) 0.9 K/uL (1.0-4.8); LYMPHOCYTES % (AUTO) 18.6 % (22.0-44.0); MEAN CORPUSCULAR HEMOGLOBIN 31.2 pg (26.0-34.0); MEAN CORPUSCULAR HGB CONC 33.6 G/dL (31.0-37.0); MEAN CORPUSCULAR VOLUME 93 fL (80-100); MONOCYTES # (AUTO) 0.6 K/uL (0.1-1.0); MONOCYTES % (AUTO) 11.8 % (2.0-9.0); NEUTROPHILS # (AUTO) 3.2 K/uL (1.8-7.7); NEUTROPHILS % (AUTO) 66.7 % (40.0-70.0); PLATELET COUNT (AUTO) 123 K/uL (150-450); RED BLOOD CELL COUNT(AUTO) 3.32 MIL/uL (4.00-5.20); RED CELL DISTRIBUTION WIDTH 15.5 % (11.5-14.5)
[2021-06-03 08:11] LABS: ALBUMIN 2.6 g/dL (3.4-5.0); BILIRUBIN,TOTAL 1.9 mg/dL (0.1-1.0); CALCIUM, TOTAL 8.6 mg/dL (8.8-10.5); CREATININE 4.61 mg/dL (0.60-1.30); POTASSIUM 4.1 mmol/L (3.5-5.1)
[2021-06-03 09:26] LABS: SPECIMENTYPE,BODY FLUID ASCITES
[2021-06-03 10:10] LABS: INR 1.1 (0.9-1.1); PROTHROMBIN TIME 11.4 SEC (9.4-11.6)
[2021-06-03 12:26] LABS: APPEARANCE,SPUN,BODY FLUID HAZY (CLEAR); APPEARANCE,UNSPUN,BODY FLUID CLOUDY (CLEAR); COLOR,BODY FLUID YELLOW (LT YELLOW); NEUTROPHILS,BODY FLUID 40 %; TOTAL VOLUME,BODY FLUID 1700 mL; WBC, BODY FLUID 110 /cu. mm.
[2021-06-03 12:27] LABS: LYMPHOCYTES,BODY FLUID 35 %; MONOCYTES,BODY FLUID 23 %
[2021-06-03] MEDS: DOXERCALCIFEROL 4 MCG/2 ML VIAL IVP PRN (14:26)
[2021-06-03] MEDS: [UNRECOGNIZED DRUG - OTHER] MISC SCH (14:26)
[2021-06-03] MEDS ORDERED: AmLODIPine BESYLATE 5 MG TABLET PO ONE (15:45)
[2021-06-03] MEDS: ATORVASTATIN CALCIUM 10 MG TABLET PO SCH (20:39)
[2021-06-04 04:23] VITALS: BP 105/52
[2021-06-04 07:38] LABS: % IRON SATURATION 102.5 % (22-44)
[2021-06-04 07:52] VITALS: BP 123/69
[2021-06-04] MEDS: DOCUSATE SODIUM 100 MG CAPSULE PO SCH ×2 (11:18→20:59)
[2021-06-04] MEDS: ALLOPURINOL 100 MG TABLET PO SCH ×2 (11:18→21:01)
[2021-06-04] MEDS: PANTOPRAZOLE SODIUM 40 MG DR TABLET PO SCH (11:18)
[2021-06-04 11:19] VITALS: BP 126/58
[2021-06-04] MEDS: CALCIUM ACETATE 667 MG CAPSULE PO SCH ×3 (11:19→17:37)
[2021-06-04] MEDS: HEPARIN SODIUM,PORCINE 5,000 UNITS/ML VIAL SQ SCH ×3 (11:19→23:07)
[2021-06-04] MEDS: AmLODIPine BESYLATE 5 MG TABLET PO SCH ×2 (11:19→20:59)
[2021-06-04] MEDS: METOPROLOL TARTRATE 25 MG TABLET PO SCH ×2 (11:19→20:59)
[2021-06-04] MEDS: CloNIDine HCL 0.1 MG TABLET PO SCH ×2 (11:19→20:59)
[2021-06-04] MEDS: VITAMIN B COMP/VIT C/FOLIC ACID CAPSULE PO SCH (11:19)
[2021-06-04] MEDS: SODIUM BICARBONATE 650 MG TABLET PO SCH (11:19)
[2021-06-04] MEDS: EPOETIN ALFA 10,000 UNITS/ML 2 ML VIAL SQ SCH (11:28)
[2021-06-04 20:15] VITALS: BP 99/43
[2021-06-04] MEDS: ATORVASTATIN CALCIUM 10 MG TABLET PO SCH (20:59)
[2021-06-05 00:12] VITALS: BP 96/42
[2021-06-05 05:07] LABS: HEPATITIS C AB (EIA) <0.1 s/co ratio (0.0-0.9)
[2021-06-05 05:21] LABS: GLUCOMETER DEV NAME(LOC) 5S.2B; GLUCOSE,POINT OF CARE 136 MG/DL (70-110)
[2021-06-05 05:34] VITALS: BP 94/49
[2021-06-05 06:33] LABS: MAGNESIUM 2.2 mg/dL (1.80-2.40); PHOSPHORUS 3.9 mg/dL (2.5-4.9)
[2021-06-05 07:42] VITALS: BP 91/43
[2021-06-05] MEDS: HEPARIN SODIUM,PORCINE 5,000 UNITS/ML VIAL SQ SCH ×3 (08:00→23:34)
[2021-06-05] MEDS: [UNRECOGNIZED DRUG - OTHER] MISC SCH (08:19)
[2021-06-05] MEDS: DOCUSATE SODIUM 100 MG CAPSULE PO SCH ×2 (08:29→20:02)
[2021-06-05] MEDS: CALCIUM ACETATE 667 MG CAPSULE PO SCH ×3 (08:29→18:03)
[2021-06-05] MEDS: SODIUM BICARBONATE 650 MG TABLET PO SCH (08:29)
[2021-06-05] MEDS: VITAMIN B COMP/VIT C/FOLIC ACID CAPSULE PO SCH (08:31)
[2021-06-05] MEDS: ALLOPURINOL 100 MG TABLET PO SCH ×2 (08:31→20:02)
[2021-06-05] MEDS: PANTOPRAZOLE SODIUM 40 MG DR TABLET PO SCH (08:31)
[2021-06-05] MEDS: METOPROLOL TARTRATE 25 MG TABLET PO SCH ×2 (09:00→20:02)
[2021-06-05] MEDS: CloNIDine HCL 0.1 MG TABLET PO SCH (09:00)
[2021-06-05] MEDS: AmLODIPine BESYLATE 5 MG TABLET PO SCH (09:00)
[2021-06-05 11:36] VITALS: BP 107/47
[2021-06-05 15:01] VITALS: BP 105/52
[2021-06-05 19:26] VITALS: BP 105/45
[2021-06-05] MEDS: ATORVASTATIN CALCIUM 10 MG TABLET PO SCH (20:02)
[2021-06-06 00:08] VITALS: BP 110/46
[2021-06-06 04:17] VITALS: BP 114/49
[2021-06-06 07:41] VITALS: BP 114/67
[2021-06-06] MEDS: HEPARIN SODIUM,PORCINE 5,000 UNITS/ML VIAL SQ SCH ×2 (08:00→14:51)
[2021-06-06] MEDS: ALLOPURINOL 100 MG TABLET PO SCH ×2 (08:06→21:46)
[2021-06-06] MEDS: PANTOPRAZOLE SODIUM 40 MG DR TABLET PO SCH (08:06)
[2021-06-06] MEDS: CALCIUM ACETATE 667 MG CAPSULE PO SCH ×3 (08:06→17:51)
[2021-06-06] MEDS: DOCUSATE SODIUM 100 MG CAPSULE PO SCH ×2 (08:06→21:46)
[2021-06-06] MEDS: VITAMIN B COMP/VIT C/FOLIC ACID CAPSULE PO SCH (08:06)
[2021-06-06] MEDS: METOPROLOL TARTRATE 25 MG TABLET PO SCH ×2 (08:08→21:00)
[2021-06-06] MEDS: [UNRECOGNIZED DRUG - OTHER] MISC SCH (08:08)
[2021-06-06 09:10] LABS: BASOPHILS % (AUTO) 0.8 % (0.0-2.0); HEMATOCRIT 30.2 % (36-46); LYMPHOCYTES # (AUTO) 1.2 K/uL (1.0-4.8); LYMPHOCYTES % (AUTO) 33.3 % (22.0-44.0); MEAN CORPUSCULAR HGB CONC 33.2 G/dL (31.0-37.0); MEAN CORPUSCULAR VOLUME 94 fL (80-100); MONOCYTES # (AUTO) 0.4 K/uL (0.1-1.0); MONOCYTES % (AUTO) 11.7 % (2.0-9.0); NEUTROPHILS # (AUTO) 1.8 K/uL (1.8-7.7); NEUTROPHILS % (AUTO) 50.2 % (40.0-70.0); PLATELET COUNT (AUTO) 131 K/uL (150-450); RED BLOOD CELL COUNT(AUTO) 3.23 MIL/uL (4.00-5.20); RED CELL DISTRIBUTION WIDTH 15.5 % (11.5-14.5)
[2021-06-06 09:26] LABS: ALBUMIN 2.4 g/dL (3.4-5.0); BILIRUBIN,TOTAL 0.9 mg/dL (0.1-1.0); CALCIUM, TOTAL 8.8 mg/dL (8.8-10.5); CREATININE 5.3 mg/dL (0.60-1.30); POTASSIUM 4.2 mmol/L (3.5-5.1); TOTAL PROTEIN, SERUM 7.5 g/dL (6.4-8.2)
[2021-06-06 11:20] VITALS: BP 122/60
[2021-06-06 15:21] VITALS: BP 129/56
[2021-06-06 20:14] VITALS: BP 131/54
[2021-06-06] MEDS: ATORVASTATIN CALCIUM 10 MG TABLET PO SCH (21:46)
[2021-06-07] VITALS (7 sets, daily range): BP systolic 132–153; BP diastolic 50–85
[2021-06-07 06:24] LABS: BASOPHILS % (AUTO) 0.9 % (0.0-2.0); EOSINOPHILS % (AUTO) 3.9 % (1.0-6.0); HEMATOCRIT 32.2 % (36-46); HEMOGLOBIN 10.7 g/dL (12.0-16.0); LYMPHOCYTES # (AUTO) 1.2 K/uL (1.0-4.8); MEAN CORPUSCULAR HEMOGLOBIN 31.2 pg (26.0-34.0); MEAN CORPUSCULAR HGB CONC 33.4 G/dL (31.0-37.0); MEAN CORPUSCULAR VOLUME 94 fL (80-100); MONOCYTES # (AUTO) 0.4 K/uL (0.1-1.0); MONOCYTES % (AUTO) 10.1 % (2.0-9.0); NEUTROPHILS # (AUTO) 2.2 K/uL (1.8-7.7); NEUTROPHILS % (AUTO) 55.1 % (40.0-70.0); PLATELET COUNT (AUTO) 154 K/uL (150-450); RED BLOOD CELL COUNT(AUTO) 3.44 MIL/uL (4.00-5.20); RED CELL DISTRIBUTION WIDTH 16.1 % (11.5-14.5)
[2021-06-07 06:41] LABS: ALBUMIN 2.7 g/dL (3.4-5.0); BILIRUBIN,TOTAL 0.8 mg/dL (0.1-1.0); CALCIUM, TOTAL 9.1 mg/dL (8.8-10.5); CREATININE 5.93 mg/dL (0.60-1.30); POTASSIUM 4.3 mmol/L (3.5-5.1); TOTAL PROTEIN, SERUM 8.2 g/dL (6.4-8.2)
[2021-06-07] MEDS: HEPARIN SODIUM,PORCINE 5,000 UNITS/ML VIAL SQ SCH ×3 (08:00→16:00)
[2021-06-07] MEDS ORDERED: MIDAZOLAM HCL 2 MG/2 ML VIAL ONE ×2 (08:47→09:23)
[2021-06-07] MEDS ORDERED: FentaNYL CITRATE PF 100 MCG/2 ML VIAL ONE (08:47)
[2021-06-07] MEDS ORDERED: FLUMAZENIL 0.1 MG/ML 5 ML VIAL IVP ONE (08:48)
[2021-06-07] MEDS ORDERED: NALOXONE HCL 0.4 MG/ML VIAL ONE (08:48)
[2021-06-07] MEDS ORDERED: LIDOCAINE/PF 1% 5 ML VIAL ONE (08:56)
[2021-06-07] MEDS: DOCUSATE SODIUM 100 MG CAPSULE PO SCH ×3 (09:00→21:00)
[2021-06-07] MEDS: ALLOPURINOL 100 MG TABLET PO SCH ×2 (09:12→21:28)
[2021-06-07] MEDS: VITAMIN B COMP/VIT C/FOLIC ACID CAPSULE PO SCH (09:13)
[2021-06-07] MEDS: CALCIUM ACETATE 667 MG CAPSULE PO SCH ×3 (09:14→18:00)
[2021-06-07] MEDS: METOPROLOL TARTRATE 25 MG TABLET PO SCH ×2 (09:14→21:28)
[2021-06-07] MEDS: PANTOPRAZOLE SODIUM 40 MG DR TABLET PO SCH (09:14)
[2021-06-07] MEDS: EPOETIN ALFA 10,000 UNITS/ML 2 ML VIAL SQ SCH (09:16)
[2021-06-07] MEDS ORDERED: FentaNYL CITRATE PF 100 MCG/2 ML VIAL IVP ONE (10:15)
[2021-06-07] MEDS ORDERED: MIDAZOLAM HCL 2 MG/2 ML VIAL IM ONE (11:30)
[2021-06-07] MEDS ORDERED: SODIUM CHLORIDE 0.9% 1,000 ML ONE (16:15)
[2021-06-07] MEDS: DOXERCALCIFEROL 4 MCG/2 ML VIAL IVP PRN (18:54)
[2021-06-07] MEDS: [UNRECOGNIZED DRUG - OTHER] MISC SCH (20:00)
[2021-06-07] MEDS: ATORVASTATIN CALCIUM 10 MG TABLET PO SCH (21:28)
[2021-06-08] MEDS: HEPARIN SODIUM,PORCINE 5,000 UNITS/ML VIAL SQ SCH ×3 (00:31→16:52)
[2021-06-08 00:34] VITALS: BP 131/54
[2021-06-08 04:15] VITALS: BP 117/50
[2021-06-08 08:00] VITALS: BP 134/52
[2021-06-08] MEDS: [UNRECOGNIZED DRUG - OTHER] MISC SCH (09:00)
[2021-06-08] MEDS: METOPROLOL TARTRATE 25 MG TABLET PO SCH (09:30)
[2021-06-08] MEDS: CALCIUM ACETATE 667 MG CAPSULE PO SCH ×2 (09:31→12:50)
[2021-06-08] MEDS: PANTOPRAZOLE SODIUM 40 MG DR TABLET PO SCH (09:31)
[2021-06-08] MEDS: DOCUSATE SODIUM 100 MG CAPSULE PO SCH (09:31)
[2021-06-08] MEDS: VITAMIN B COMP/VIT C/FOLIC ACID CAPSULE PO SCH (09:31)
[2021-06-08] MEDS: ALLOPURINOL 100 MG TABLET PO SCH (09:33)
[2021-06-08] MEDS ORDERED: AMOX1TAB16 PO (11:50)
[2021-06-08] MEDS ORDERED: AMOX TR/POT CLAV 875 MG/125 MG TABLET PO ONE (12:00)
[2021-06-08 13:00] VITALS: BP 138/54
[2021-06-08] MEDS ORDERED: PANT-31 PO (15:37)
[2021-06-08] MEDS ORDERED: B CO1CAP6 PO (15:40)
[2021-06-08] MEDS ORDERED: AMOX-429 PO (15:43)
[2021-06-08] MEDS ORDERED: AMOX TR/POT CLAV 875 MG/125 MG TABLET PO SCH ×2 (21:00)
[2021-06-09] MEDS ORDERED: LEVOFLOXACIN 500 MG TABLET PO SCH (09:00)
== END 2021-06-08 16:55 | disposition home health service (06) | DRG 432 ==
LOC: EMS 06:50 → 5S 13:59
PROVIDERS: ADMIT Internal Medicine; ATTEND Internal Medicine
PROC: 5A1D70Z Performance of Urinary Filtration, Intermittent, Less than 6 Hours Per Day (ICD-10-PCS; 2021-06-02)
PROC: 0W9G3ZZ Drainage of Peritoneal Cavity, Percutaneous Approach (ICD-10-PCS; principal; 2021-06-03)
PROC: 5A1D70Z Performance of Urinary Filtration, Intermittent, Less than 6 Hours Per Day (ICD-10-PCS; 2021-06-03)
PROC: 0F943ZZ Drainage of Gallbladder, Percutaneous Approach (ICD-10-PCS; 2021-06-07)
PROC: 5A1D70Z Performance of Urinary Filtration, Intermittent, Less than 6 Hours Per Day (ICD-10-PCS; 2021-06-07)
DX: K74.60 Unspecified cirrhosis of liver (principal); N18.6 End stage renal disease; K80.00 Calculus of gallbladder with acute cholecystitis without obstruction; R18.8 Other ascites; E44.0 Moderate protein-calorie malnutrition; I12.0 Hypertensive chronic kidney disease with stage 5 chronic kidney disease or end stage renal disease; N25.81 Secondary hyperparathyroidism of renal origin; E11.22 Type 2 diabetes mellitus with diabetic chronic kidney disease; D63.8 Anemia in other chronic diseases classified elsewhere; E78.5 Hyperlipidemia, unspecified; M10.9 Gout, unspecified; Z90.5 Acquired absence of kidney; Z99.2 Dependence on renal dialysis; D63.1 Anemia in chronic kidney disease; Z20.822 Contact with and (suspected) exposure to COVID-19; R16.0 Hepatomegaly, not elsewhere classified; Z68.20 Body mass index [BMI] 20.0-20.9, adult
CPT/HCPCS: 49083; 71045; 74176; 74183; 75989; 76705; 76942; 78226; 80053; 82105; 82728; 82962; 83516; 83540; 83550; 83605; 83690; 83735; 84100; 84484; 85025; 85610; 85730; 86038; 86706; 86707; 86803; 87040; 87070; 87077; 87081; 87205; 87340; 87350; 89051; 93005; 99291; A9537; A9575; G0238; J0360; J0885; J1270; J1644; J2001; J2250; J2270; J2310; J2405; J2543; J3010; J3490; J7030; J7050; J7060; 36415-L1; 36415-TC

== ENCOUNTER 2021-07-13 08:08 | Day surgery (SDC) | payer MEDICARE, OTHER ==
[~2021-07-13 08:08] MED LIST changes: +ALBUMIN HUMAN 25%-12.5GM/50ML 50 ML IV PRN; -ALLO-45 PO; +ALLO100T2 PO; +AMOX-429 PO; +AMOX1TAB16 PO; +B CO1CAP6 PO; -METR500 PO; +PANT-31 PO; +SODIUM CHLORIDE 0.9% 1,000 ML IV ONE; +SODIUM CHLORIDE 0.9% 1,000 ML ONE
[2021-07-13 08:44] LABS: COVID AG,FIA SOURCE NASOPHARYNGEAL
[2021-07-13] MEDS ORDERED: SODIUM CHLORIDE 0.9% 1,000 ML IV ONE (08:45)
== END 2021-07-13 11:35 | disposition home or self-care (01) ==
LOC: SDS 08:08 → MSR 11:35
PROVIDERS: ATTEND Specialist
DX: R14.0 Abdominal distension (gaseous) (principal); R18.8 Other ascites; E11.21 Type 2 diabetes mellitus with diabetic nephropathy; I12.9 Hypertensive chronic kidney disease with stage 1 through stage 4 chronic kidney disease, or unspecified chronic kidney disease; N18.9 Chronic kidney disease, unspecified; E78.5 Hyperlipidemia, unspecified; M10.9 Gout, unspecified; Z87.440 Personal history of urinary (tract) infections; Z79.899 Other long term (current) drug therapy; Z98.890 Other specified postprocedural states; Z90.5 Acquired absence of kidney
CPT/HCPCS: 76705; 87426; 93005 ×2; C9803; J7030

== ENCOUNTER 2021-07-28 01:06 | Inpatient (IN) | payer MEDICARE, OTHER ==
[~2021-07-28] VITALS: Ht 152.4 cm; Wt 55.7 kg
[~2021-07-28 01:06] MED LIST changes: -ALBUMIN HUMAN 25%-12.5GM/50ML 50 ML IV PRN; -SODIUM CHLORIDE 0.9% 1,000 ML IV ONE; -SODIUM CHLORIDE 0.9% 1,000 ML ONE
[2021-07-28 02:21] LABS: BASOPHILS % (AUTO) 0.5 % (0.0-2.0); EOSINOPHILS % (AUTO) 0.9 % (1.0-6.0); HEMATOCRIT 27.4 % (36-46); HEMOGLOBIN 9.2 g/dL (12.0-16.0); LYMPHOCYTES # (AUTO) 1.6 K/uL (1.0-4.8); LYMPHOCYTES % (AUTO) 22.6 % (22.0-44.0); MEAN CORPUSCULAR HEMOGLOBIN 34.4 pg (26.0-34.0); MEAN CORPUSCULAR HGB CONC 33.7 G/dL (31.0-37.0); MEAN CORPUSCULAR VOLUME 102 fL (80-100); MONOCYTES # (AUTO) 0.8 K/uL (0.1-1.0); MONOCYTES % (AUTO) 11.3 % (2.0-9.0); NEUTROPHILS # (AUTO) 4.4 K/uL (1.8-7.7); NEUTROPHILS % (AUTO) 64.7 % (40.0-70.0); PLATELET COUNT (AUTO) 147 K/uL (150-450); RED BLOOD CELL COUNT(AUTO) 2.68 MIL/uL (4.00-5.20); RED CELL DISTRIBUTION WIDTH 15.4 % (11.5-14.5)
[2021-07-28 02:35] LABS: CALCIUM, TOTAL 8.2 mg/dL (8.8-10.5); CREATININE 8.2 mg/dL (0.60-1.30); POTASSIUM 4.7 mmol/L (3.5-5.1)
[2021-07-28 02:41] LABS: ALBUMIN 1.9 g/dL (3.4-5.0); BILIRUBIN,TOTAL 3.1 mg/dL (0.1-1.0); TOTAL PROTEIN, SERUM 7.8 g/dL (6.4-8.2)
[2021-07-28] MEDS ORDERED: SODIUM CHLORIDE 0.9% 100 ML ONE (02:57)
[2021-07-28] MEDS ORDERED: IOHEXOL 350 MG/ML 75 ML VIAL ONE (02:57)
[2021-07-28] MEDS ORDERED: CefTRIAXone 1 GM/DEXTROSE 50 ML IV ONE (04:45)
[2021-07-28] MEDS ORDERED: ONDANSETRON HCL 4 MG/2 ML VIAL IVP PRN ×2 (05:00→06:45)
[2021-07-28] MEDS ORDERED: 0.9% SODIUM CHLORIDE 10 ML SYRINGE IVP PRN (05:00)
[2021-07-28] MEDS ORDERED: ACETAMINOPHEN 325 MG TABLET PO PRN ×2 (05:00→06:45)
[2021-07-28 05:14] LABS: COVID AG,FIA SOURCE NASOPHARYNGEAL
[2021-07-28 06:24] VITALS: BP 135/56
[2021-07-28] MEDS ORDERED: MORPHINE SULFATE 2 MG/ML SYRINGE IVP PRN (06:45)
[2021-07-28] MEDS ORDERED: BISACODYL 10 MG RECTAL RECTAL SUPPOSITORY PR PRN (06:45)
[2021-07-28] MEDS ORDERED: ZOLPIDEM TARTRATE 5 MG TABLET PO PRN (06:45)
[2021-07-28] MEDS ORDERED: MAGNESIUM HYDROXIDE SUSPENSION 30 ML UDCUP PO PRN (06:45)
[2021-07-28] MEDS ORDERED: HYDROCODONE/ACETAMINOPHEN 5-325 MG TABLET PO PRN (06:45)
[2021-07-28] MEDS: ALLOPURINOL 100 MG TABLET PO SCH ×2 (08:19→20:38)
[2021-07-28] MEDS: DOCUSATE SODIUM 100 MG CAPSULE PO SCH ×2 (08:19→20:37)
[2021-07-28] MEDS: CALCIUM ACETATE 667 MG CAPSULE PO SCH ×3 (08:19→18:30)
[2021-07-28] MEDS: HEPARIN SODIUM,PORCINE 5,000 UNITS/ML VIAL SQ SCH ×2 (08:19→17:21)
[2021-07-28 08:28] VITALS: BP 117/45
[2021-07-28] MEDS ORDERED: SODIUM BICARBONATE 650 MG TABLET PO SCH (09:00)
[2021-07-28] MEDS ORDERED: AmLODIPine BESYLATE 5 MG TABLET PO SCH (09:00)
[2021-07-28] MEDS ORDERED: PANTOPRAZOLE SODIUM 40 MG DR TABLET PO SCH (09:00)
[2021-07-28] MEDS ORDERED: METOPROLOL TARTRATE 25 MG TABLET PO SCH (09:00)
[2021-07-28] MEDS ORDERED: LIDOCAINE/PF 1% 5 ML VIAL ONE (09:20)
[2021-07-28] MEDS ORDERED: FentaNYL CITRATE PF 100 MCG/2 ML VIAL ONE (10:01)
[2021-07-28] MEDS ORDERED: MIDAZOLAM HCL 2 MG/2 ML VIAL ONE (10:01)
[2021-07-28] MEDS ORDERED: FLUMAZENIL 0.1 MG/ML 5 ML VIAL IVP ONE (10:01)
[2021-07-28] MEDS ORDERED: NALOXONE HCL 0.4 MG/ML VIAL ONE (10:01)
[2021-07-28 10:07] LABS: INR 1.1 (0.9-1.1); PROTHROMBIN TIME 11.8 SEC (9.4-11.6)
[2021-07-28] MEDS ORDERED: FentaNYL CITRATE PF 100 MCG/2 ML VIAL IVP ONE ×2 (11:30→11:45)
[2021-07-28] MEDS ORDERED: MIDAZOLAM HCL 2 MG/2 ML VIAL IVP ONE ×2 (11:30→11:45)
[2021-07-28] MEDS ORDERED: IOHEXOL 240 MG/ML 20 ML VIAL ONE (11:46)
[2021-07-28] MEDS ORDERED: SODIUM CHLORIDE 0.9% 1,000 ML ONE (13:32)
[2021-07-28] MEDS ORDERED: LEVO-72 PO (16:06)
[2021-07-28 17:18] VITALS: BP 106/71
[2021-07-28 20:00] VITALS: BP 106/42
[2021-07-28] MEDS ORDERED: ATORVASTATIN CALCIUM 10 MG TABLET PO SCH (21:00)
[2021-07-28] MEDS ORDERED: MANNITOL 25%-12.5 GM/50 ML VIAL IVP ONE (21:14)
[2021-07-30] MEDS ORDERED: EPOETIN ALFA 10,000 UNITS/ML 2 ML VIAL SQ SCH (09:00)
== END 2021-07-28 21:15 | disposition home or self-care (01) | DRG 698 ==
LOC: EMS 01:07 → 6N 05:00
PROVIDERS: ADMIT Internal Medicine; ATTEND Internal Medicine
PROC: 0FP4X0Z Removal of Drainage Device from Gallbladder, External Approach (ICD-10-PCS; principal; 2021-07-28)
PROC: 5A1D70Z Performance of Urinary Filtration, Intermittent, Less than 6 Hours Per Day (ICD-10-PCS; 2021-07-28)
PROC: 0F943ZX Drainage of Gallbladder, Percutaneous Approach, Diagnostic (ICD-10-PCS; 2021-07-28)
DX: T83.020A Displacement of cystostomy catheter, initial encounter (principal); N18.6 End stage renal disease; E43 Unspecified severe protein-calorie malnutrition; L03.311 Cellulitis of abdominal wall; I12.0 Hypertensive chronic kidney disease with stage 5 chronic kidney disease or end stage renal disease; N25.81 Secondary hyperparathyroidism of renal origin; C22.7 Other specified carcinomas of liver; T83.510A Infection and inflammatory reaction due to cystostomy catheter, initial encounter; E11.22 Type 2 diabetes mellitus with diabetic chronic kidney disease; E78.5 Hyperlipidemia, unspecified; E83.39 Other disorders of phosphorus metabolism; D25.9 Leiomyoma of uterus, unspecified; D63.1 Anemia in chronic kidney disease; K44.9 Diaphragmatic hernia without obstruction or gangrene; K74.60 Unspecified cirrhosis of liver; M10.9 Gout, unspecified; Z20.822 Contact with and (suspected) exposure to COVID-19; Y82.8 Other medical devices associated with adverse incidents; Y92.89 Other specified places as the place of occurrence of the external cause; Z90.49 Acquired absence of other specified parts of digestive tract; Z99.2 Dependence on renal dialysis; Z68.24 Body mass index [BMI] 24.0-24.9, adult
CPT/HCPCS: 10022; 74177; 80053; 83605; 85025; 85610; 85730; 87040; 87340; 93005; 99242; 99285; J0696; J1644; J2001; J2150; J2250; J2310; J3010; J3490; J7030; J7050; Q9966; Q9967

== ENCOUNTER 2021-10-21 07:59 | Day surgery (SDC) | payer MEDICARE, OTHER ==
[2021-10-20 13:48] LABS: COVID AG,FIA SOURCE NASOPHARYNGEAL
[2021-10-20 13:50] LABS: HEMOGLOBIN 10.7 g/dL (12.0-16.0); LYMPHOCYTES # (AUTO) 0.5 K/uL (1.0-4.8); LYMPHOCYTES % (AUTO) 12.8 % (22.0-44.0); MEAN CORPUSCULAR HEMOGLOBIN 34.5 pg (26.0-34.0); MEAN CORPUSCULAR HGB CONC 34.6 G/dL (31.0-37.0); MEAN CORPUSCULAR VOLUME 100 fL (80-100); MONOCYTES # (AUTO) 0.6 K/uL (0.1-1.0); MONOCYTES % (AUTO) 15.3 % (2.0-9.0); NEUTROPHILS # (AUTO) 2.6 K/uL (1.8-7.7); NEUTROPHILS % (AUTO) 69.9 % (40.0-70.0); RED BLOOD CELL COUNT(AUTO) 3.11 MIL/uL (4.00-5.20); RED CELL DISTRIBUTION WIDTH 16.3 % (11.5-14.5)
[2021-10-20 13:59] LABS: PLATELET COUNT (AUTO) 101 K/uL (150-450)
[2021-10-20 14:02] LABS: CALCIUM, TOTAL 8.8 mg/dL (8.8-10.5); CREATININE 2.95 mg/dL (0.60-1.30); POTASSIUM 3.4 mmol/L (3.5-5.1)
[2021-10-20 14:11] LABS: INR 1.2 (0.9-1.1); PROTHROMBIN TIME 12.2 SEC (9.4-11.6)
[~2021-10-21] VITALS: Ht 149.9 cm; Wt 72.7 kg
[~2021-10-21 07:59] MED LIST changes: -AMOX-429 PO; -AMOX1TAB16 PO; +LEVO-72 PO
[2021-10-21] MEDS ORDERED: SODIUM CHLORIDE 0.9% 1,000 ML IV ONE (08:00)
[2021-10-21 08:57] LABS: GLUCOMETER DEV NAME(LOC) SDS.; GLUCOSE,POINT OF CARE 92 MG/DL (70-110)
== END 2021-10-21 13:35 | disposition home or self-care (01) ==
LOC: SURGERY 07:59 → EDSTATUS 10:00 → SURGERY 13:35
PROVIDERS: ATTEND Internal Medicine Nephrology
DX: R18.8 Other ascites (principal); Z98.890 Other specified postprocedural states; Z79.899 Other long term (current) drug therapy; Z79.01 Long term (current) use of anticoagulants
CPT/HCPCS: 36415; 49083; 80048; 82962; 85025; 85610; 85730; 87426; 93005; C1729; C9803; J7030; 76942

== ENCOUNTER 2021-12-06 13:14 | Emergency (ER) | payer MEDICARE, OTHER ==
[~2021-12-06] VITALS: Ht 157.5 cm; Wt 53.0 kg
[~2021-12-06 13:14] MED LIST changes: +0.9% SODIUM CHLORIDE 10 ML SYRINGE IVP ONE; +ATROPINE SULFATE 0.1 MG/ML 10 ML SYRINGE IVP ONE; +EPINEPHrine 1:10,000 [1 MG/10 ML] SYRINGE IVP ONE
[2021-12-06] MEDS ORDERED: ATROPINE SULFATE 0.1 MG/ML 10 ML SYRINGE IVP ONE (13:39)
[2021-12-06] MEDS ORDERED: EPINEPHrine 1:10,000 [1 MG/10 ML] SYRINGE IVP ONE (13:39)
[2021-12-06] MEDS ORDERED: SODIUM CHLORIDE 0.9% 1,000 ML IV ONE (14:15)
[2021-12-06] MEDS ORDERED: ONDANSETRON HCL 4 MG/2 ML VIAL IVP ONE (14:45)
[2021-12-06 14:46] LABS: AMMONIA 14 umol/L (11-32)
[2021-12-06 14:48] LABS: BASOPHILS % (AUTO) 0.2 % (0.0-2.0); EOSINOPHILS % (AUTO) 0.2 % (1.0-6.0); HEMATOCRIT 23.9 % (36-46); HEMOGLOBIN 7.9 g/dL (12.0-16.0); LYMPHOCYTES # (AUTO) 0.5 K/uL (1.0-4.8); LYMPHOCYTES % (AUTO) 4.4 % (22.0-44.0); MEAN CORPUSCULAR HEMOGLOBIN 36.4 pg (26.0-34.0); MEAN CORPUSCULAR VOLUME 111 fL (80-100); MONOCYTES # (AUTO) 0.5 K/uL (0.1-1.0); NEUTROPHILS # (AUTO) 9.7 K/uL (1.8-7.7); PLATELET COUNT (AUTO) 77 K/uL (150-450); RED BLOOD CELL COUNT(AUTO) 2.16 MIL/uL (4.00-5.20); RED CELL DISTRIBUTION WIDTH 24.3 % (11.5-14.5)
[2021-12-06 14:58] LABS: CALCIUM, TOTAL 8.9 mg/dL (8.8-10.5); CREATININE 3.86 mg/dL (0.60-1.30); POTASSIUM 5.1 mmol/L (3.5-5.1)
[2021-12-06 15:01] LABS: INR 1.9 (0.9-1.1); PROTHROMBIN TIME 18.9 SEC (9.4-11.6)
[2021-12-06 15:25] LABS: ALBUMIN 2.1 g/dL (3.4-5.0); BILIRUBIN,TOTAL 7.6 mg/dL (0.1-1.0); MAGNESIUM 2.1 mg/dL (1.80-2.40); PHOSPHORUS 3.1 mg/dL (2.5-4.9); TOTAL PROTEIN, SERUM 7.2 g/dL (6.4-8.2)
[2021-12-06 15:31] LABS: NEUTROPHILS % (AUTO) 90.2 % (40.0-70.0)
[2021-12-06 15:32] LABS: PLATELET MORPHOLOGY COMMENT GIANT PLTS PRESENT
[2021-12-06] MEDS ORDERED: OCTREOTIDE ACETATE 100 MCG/ML VIAL IVP ONE (16:00)
[2021-12-06] MEDS ORDERED: CefTRIAXone 1 GM/DEXTROSE 50 ML IV ONE (16:00)
[2021-12-06] MEDS ORDERED: PANTOPRAZOLE SODIUM 40 MG/VIAL IVP ONE (16:15)
[2021-12-06] MEDS ORDERED: PANTOPRAZOLE SODIUM 80 MG in SODIUM CHLORIDE 0.9% 100 ML IV SCH (16:15)
[2021-12-06] MEDS ORDERED: ETOMIDATE 2 MG/ML 10 ML VIAL ONE (16:55)
[2021-12-06] MEDS ORDERED: SUCCINYLCHOLINE CHLORIDE 20 MG/ML 10 ML VIAL ONE (16:55)
[2021-12-06] MEDS ORDERED: NOREPINEPHRINE 4 MG/D5%-WATER 250 ML IV ONE (17:10)
[2021-12-06] MEDS ORDERED: NOREPINEPHRINE 4 MG/D5%-WATER 250 ML IV PRN (17:15)
[2021-12-06] MEDS ORDERED: PROPOFOL 1000 MG/ISO-OSM 100 ML IV PRN (17:15)
[2021-12-06] MEDS ORDERED: PHENYLEPHRINE HCL IN 0.9% NACL 400 MCG/10 ML SYRINGE IVP ONE (18:09)
[2021-12-06] MEDS ORDERED: ACETAMINOPHEN 325 MG TABLET PO PRN (18:15)
[2021-12-06] MEDS ORDERED: KETAMINE HCL 500 MG in DEXTROSE 5%-WATER 490 ML IV PRN (18:15)
[2021-12-06] MEDS ORDERED: 0.9% SODIUM CHLORIDE 10 ML SYRINGE IVP PRN (18:15)
[2021-12-06] MEDS ORDERED: ONDANSETRON HCL 4 MG/2 ML VIAL IVP PRN (18:15)
[2021-12-06 18:46] LABS: CALCIUM, TOTAL 8.6 mg/dL (8.8-10.5); CREATININE 4.02 mg/dL (0.60-1.30)
[2021-12-06] MEDS: PHENYLEPHRINE 200 MG/D5%-WATER 250 ML IV PRN (18:50)
[2021-12-06 18:51] LABS: ALBUMIN 1.5 g/dL (3.4-5.0); BILIRUBIN,TOTAL 5.9 mg/dL (0.1-1.0); TOTAL PROTEIN, SERUM 5.4 g/dL (6.4-8.2)
[2021-12-06 19:20] LABS: ABG BASE EXCESS -11.1 mmol/L (-2.0-3.0); ABG CARBOXYHEMOGLOBIN 0.8 % (0.0-1.5); ABG HCO3 16.2 mmol/L (22.0-26.0); ABG METHEMOGLOBIN 0.3 % (0.0-1.5); ABG OXYGEN CONTENT 11.2 mL/dL (15.0-23.0); ABG OXYGEN SATURATION 99.9 % (95.0-98.0); ABG OXYHEMOGLOBIN 98.8 % (94.0-100.0); ABG PCO2 35 mmHg (35-45); ABG PH 7.274 (7.35-7.450); PO2, ARTERIAL BG 273.1 mmHg (71.0-79.0); SOURCE, BLOOD GAS ARTERIAL; TEMPERATURE, FAHRENHEIT, BG 98.6 FAHREN (96.0-98.6)
[2021-12-06 19:21] LABS: ABG TOTAL HEMOGLOBIN 7.5 G/dL (12.0-18.0); O2 DEVICE,BLOOD GAS VENTILATOR (ROOM AIR); PEEP,BG 5 cm H2O; SITE, BLOOD GAS RT RADIAL; VT, ABG 375 ml
[2021-12-06 19:52] LABS: COVID AG,FIA SOURCE NASOPHARYNGEAL
[2021-12-06] MEDS ORDERED: OXYGEN THERAPY IH SCH (20:00)
[2021-12-06] MEDS ORDERED: RINGERS LACTATED IV ONE (20:15)
[2021-12-06] MEDS ORDERED: OCTREOTIDE ACETATE 500 MCG in DEXTROSE 5%-WATER 97.5 ML IV SCH (20:15)
[2021-12-06] MEDS ORDERED: RINGERS SOLUTION,LACTATED 1,000 ML IV ONE (20:15)
[2021-12-06] MEDS ORDERED: VASOPRESSIN 40 UNITS in DEXTROSE 5%-WATER 98 ML IV PRN (20:15)
[2021-12-06] MEDS ORDERED: MIDODRINE HCL 5 MG TABLET NG ONE (20:30)
[2021-12-06 21:30] VITALS: BP 44/26
[2021-12-06] MEDS: EPINEPHrine 2 MG in DEXTROSE 5%-WATER 248 ML IV PRN ×2 (21:36→23:30)
[2021-12-06 21:45] VITALS: BP 63/17
[2021-12-06 22:00] VITALS: BP 58/22
[2021-12-06 22:15] VITALS: BP 51/25
[2021-12-06 22:21] LABS: HEMATOCRIT 19.8 % (36-46); HEMOGLOBIN 6.1 g/dL (12.0-16.0)
[2021-12-06 22:30] VITALS: BP 53/25
[2021-12-07] MEDS: PHENYLEPHRINE 200 MG/D5%-WATER 250 ML IV PRN
[2021-12-07 00:20] VITALS: BP 47/28
[2021-12-07 00:50] VITALS: BP 60/21
[2021-12-07 01:15] VITALS: BP 41/18
[2021-12-07 02:45] VITALS: BP 0/0
[2021-12-07 02:59] LABS: HEMOGLOBIN 5.1 g/dL (12.0-16.0)
[2021-12-07 03:00] LABS: HEMATOCRIT 17.7 % (36-46)
[2021-12-07] MEDS ORDERED: CefTRIAXone 1 GM/DEXTROSE 50 ML IV SCH (06:00)
== END 2021-12-07 06:33 ==
LOC: EMS 13:38
DX: I46.9 Cardiac arrest, cause unspecified (principal); K92.2 Gastrointestinal hemorrhage, unspecified; D64.9 Anemia, unspecified; K74.60 Unspecified cirrhosis of liver; D69.6 Thrombocytopenia, unspecified; I12.0 Hypertensive chronic kidney disease with stage 5 chronic kidney disease or end stage renal disease; E11.22 Type 2 diabetes mellitus with diabetic chronic kidney disease; N18.6 End stage renal disease; Z20.822 Contact with and (suspected) exposure to COVID-19; Z99.2 Dependence on renal dialysis
CPT/HCPCS: 31500; 36415; 36430; 36556; 36600; 71045; 80053; 82105; 82140; 82550; 82805; 83735; 83880; 84100; 84484; 85014; 85018; 85025; 85610; 85730; 86850; 86900; 86901; 86923; 86927; 87426; 92950; 93005; 96361; 96365; 96366; 96375; 99291; 99292; C9113; J0171 ×2; J0330; J0461; J2354 ×2; J2370; J2405; J3490 ×5; J7030; J7050; J7060 ×3; J7120; P9016; P9017; Q9967; 94003